=== PATIENT | female | born 1990 | race Caucasian/White ===

== ENCOUNTER 2018-09-27 16:01 | Emergency (ER) | payer OTHER ==
[2018-09-27] MEDS ORDERED: Al Hydrox/Mg Hydrox/Simet LIQ* 30 ML UDC PO ONE (17:46)
[2018-09-27] MEDS ORDERED: Pantoprazole IV* 40 MG IV ONE (17:46)
[2018-09-27] MEDS ORDERED: NS 0.9% 1000 ML** 1,000 ML IV ONE (17:46)
[2018-09-27] MEDS ORDERED: Lidocaine 2% VISCOUS* 15 ML UDC PO ONE (17:46)
--- NOTE | 2018-09-27 17:52 | ED ---
HPI Chest Pain - HPI Summary HPI Summary: A 28 y/o female presents to [facility] with a chief complaint of chest tightness today. She reports that she was giving a presentation when she got lightheaded, dizzy and felt some SOB. She reports that was not nervous as she has given numerous presentations before. She says her pain is better now, rating her pain as a 1/10 in severity. She is on the IUD Mirena. She has a Hx of GERD. She notes that she modified her diet for this, but still eats well. She denies any SHx or allergies. Vital signs while in room HR:87 bpm, O2 Sat: 99, BP: 120/62 - History of Current Complaint Chief Complaint: EDChestWallPain Time Seen by Provider: 09/27/18 16:27 Hx Obtained From: Patient, EMS Onset/Duration: Started Hours Ago, Still Present Timing: Constant, Lasting Hours Initial Severity: Severe Current Severity: Mild Pain Intensity: 1 Pain Scale Used: 0-10 Numeric Chest Pain Location: Diffuse Chest Pain Radiates: No Character: Tightness Aggravating Factor(s): Nothing Alleviating Factor(s): Nothing Associated Signs and Symptoms: Positive: Dizziness, Shortness of Breath, Lightheadedness - Allergy/Home Medications Allergies/Adverse Reactions: Allergies Allergy/AdvReac Type Severity Reaction Status Date / Time No Known Allergies Allergy Verified 09/27/18 17:50 PMH/Surg Hx/FS Hx/Imm Hx Endocrine/Hematology History: Denies: Hx Diabetes Cardiovascular History: Denies: Hx Hypertension - Surgical History Surgery Procedure, Year, and Place: none reported - Immunization History Immunizations Up to Date: Yes Infectious Disease History: No Infectious Disease History: Denies: Traveled Outside the [place] in Last 30 Days - Family History Known Family History: Positive: Hypertension - mother Negative: Diabetes - Social History Alcohol Use: Rare Substance Use Type: Reports: None Smoking Status (MU): Never Smoked Tobacco Review of Systems All Other Systems Reviewed And Are Negative: Yes Physical Exam - Summary Physical Exam Summary: GENERAL: Patient is a well-developed and nourished F who is lying comfortable in the stretcher. Patient is not in any acute respiratory distress. HEAD AND FACE: Normocephalic EYES: PERRLA, EOMI x 2. EARS: Hearing grossly intact. MOUTH: Oropharynx within normal limits. NECK: Supple, trachea is midline, no adenopathy, no JVD, no carotid bruit. CHEST: Symmetric, no tenderness at palpation LUNGS: Clear to auscultation bilaterally. No wheezing or crackles. CVS: Regular rate and rhythm, S1 and S2 present, no murmurs or gallops appreciated. ABDOMEN: Soft, non-tender. Bowel sounds are normal. No abdominal abnormal pulsations. EXTREMITIES: Full ROM in all major joints, no edema, no cyanosis or clubbing. NEURO: Alert and oriented x 3. No acute neurological deficits. Speech is normal and follows commands. SKIN: Dry and warm Triage Information Reviewed: Yes Vital Signs On Initial Exam: Initial Vitals Temp Pulse Resp BP Pulse Ox 99.8 F 90 18 117/77 98 09/27/18 16:47 09/27/18 16:47 09/27/18 16:47 09/27/18 16:47 09/27/18 16:47 Vital Signs Reviewed: Yes Diagnostics - Vital Signs Vital Signs Temp Pulse Resp BP Pulse Ox 09/27/18 16:47 99.8 F 90 18 117/77 98 - Laboratory Result Diagrams: 09/27/18 18:05 09/27/18 17:55 Lab Statement: Any lab studies that have been ordered have been reviewed, and results considered in the medical decision making process. - Radiology CXR Radiology Interpretation Completed By: Radiologist Summary of Radiographic Findings: No radiographic evidence of acute cardiopulmonary disease. ED physician has reviewed this imaging report. - EKG 17:12 Cardiac Rate: NL - 73 bpm EKG Rhythm: Sinus Rhythm Summary of EKG Findings: Normal sinus rhythm at 73 bpm, normal axis Chest Pain Course/Dx - Course Course Of Treatment: A 28 y/o female presents to [facility] with a chief complaint of chest tightness today. Workup is unremarkable. The physical exam was unremarkable. EKG at 17:12 shows Normal sinus rhythm at 73 bpm, normal axis. CXR impression: No radiographic evidence of acute cardiopulmonary disease. Bloodwork and chemistries obtained and are WNL. I discussed results with patient and she reports feeling better. She is hemodynamically stable and safe for discharge. Strict return precautions given and she will otherwise follow up with her PCP. - Diagnoses Provider Diagnoses: Near syncope, Dehydration Discharge - Sign-Out/Discharge Documenting (check all that apply): Patient Departure - DC Patient Received Moderate/Deep Sedation with Procedure: No - Discharge Plan Condition: Stable Disposition: HOME Prescriptions: Ranitidine TAB (NF) [Zantac TAB (NF)] 150 mg PO BID #60 tab Patient Education Materials: Dehydration (ED), Near Syncope (ED) Referrals: [facility] [Outside] (1-3 days) Additional Instructions: Follow up with your primary care physician in 1-3 days. RETURN TO THE EMERGENCY DEPARTMENT FOR CHANGING OR WORSENING SYMPTOMS. - Billing Disposition and Condition Condition: STABLE Disposition: Home - Attestation Statements Document Initiated by Scribe: Yes Documenting Scribe: Ludin Reed Provider For Whom Scribe is Documenting (Include Credential): Heather Nguyễn MD Scribe Attestation: Ludin Gill scribed for Heather Nguyễn MD on 09/28/18 at 0738. Scribe Documentation Reviewed: Yes Provider Attestation: The documentation as recorded by the Ludin sr accurately reflects the service I personally performed and the decisions made by , Peg Nguyễn MD Status of Scribe Document: Viewed
[2018-09-27 18:26] LABS: ABS Basophils 0 10^3/ul (0-0.2); ABS Eosinophils 0 10^3/ul (0-0.6); ABS Lymphocytes 1.7 10^3/ul (1.0-4.8); ABS Monocytes 0.5 10^3/ul (0-0.8); ABS Neutrophils 12.7 10^3/ul (1.5-7.7); ABS Nucleated RBC 0 10^3/ul; Eosinophil % 0.1 %; Hematocrit 45 % (33-41); Lymphocyte % 11.3 %; Mean Corpuscular HGB Conc 34 g/dL (31-36); Mean Corpuscular Hemoglobin 29 pg (27-31); Mean Corpuscular Volume 85 fL (80-97); Mean Platelet Volume 9.3 fL (7.4-10.4); Nucleated Red Blood Cells % 0.2; Platelet Count 248 10^3/uL (150-450); Red Blood Count 5.23 10^6 /uL (3.70-4.87); Red Cell Distribution Width 13 % (10.5-15); White Blood Count 14.9 10^3/uL (3.5-10.8)
[2018-09-27 18:38] LABS: Activated Partial Thrombo Time 27.7 seconds (26.0-36.3); INR 0.98 (0.77-1.02)
[2018-09-27 18:40] LABS: Urine Appearance Clear; Urine Bilirubin Negative (Negative); Urine Blood Negative (Negative); Urine Color Straw; Urine Glucose Negative (Negative); Urine Ketones Negative (Negative); Urine Nitrite Negative (Negative); Urine Protein Negative (Negative); Urine Specific Gravity 1.006 (1.010-1.030); Urine Urobilinogen Negative (Negative)
[2018-09-27 18:42] LABS: ALT 9 U/L (7-52); AST 14 U/L (13-39); Albumin 5.1 g/dL (3.2-5.2); Albumin/Globulin Ratio 2.1 (1-3); Alkaline Phosphatase 41 U/L (34-104); Anion Gap 9 mmol/L (2-11); BUN/Creatinine Ratio 28.6 (8-20); Blood Urea Nitrogen 18 mg/dL (6-24); CO2 Carbon Dioxide 24 mmol/L (22-32); Chloride 107 mmol/L (101-111); EGFR African American 138.2 (>60); EGFR Non-African American 114.2 (>60); Globulin 2.4 g/dL (2-4); Glucose 108 mg/dL (70-100); Potassium 4.2 mmol/L (3.5-5.0); Sodium 140 mmol/L (135-145); Total Protein 7.5 g/dL (6.4-8.9)
[2018-09-27 19:19] LABS: HCG Pregnancy < 0.60 mIU/mL
[2018-09-27 19:24] LABS: T4, Total 6.85 mcg/dL (6.09-12.23)
[2018-09-27 19:28] LABS: TSH (Thyroid Stimulating Horm) 1.39 mcIU/mL (0.34-5.60)
[2018-09-27 19:30] VITALS: BP 124/93
== END 2018-09-27 19:32 | disposition home or self-care (01) ==
LOC: ED 16:01
DX: R55 Syncope and collapse (principal); E86.0 Dehydration; R06.02 Shortness of breath; R42 Dizziness and giddiness; K21.9 Gastro-esophageal reflux disease without esophagitis
CPT/HCPCS: 36415; 71046; 80053; 81003; 83605; 83880; 84436; 84443; 84484; 84702; 85025; 85379; 85610; 85730; 93005; 96361; 96374; 99284; A9270-GY